=== PATIENT | female | born 1995 | race Caucasian/White ===

== ENCOUNTER 2016-04-15 14:35 | Emergency (ER) | payer MEDICAID ==
[~2016-04-15] VITALS: Ht 162.6 cm; Wt 54.5 kg
[2016-04-15 14:55] VITALS: BP 114/74; PULSE 76; RESP 12; O2SAT 100
--- NOTE | 2016-04-15 15:45 | DRSVH ---
PROCEDURE: X-RAY RIGHT FOREARM, TWO VIEWS ([id number]) INDICATIONS: truama, fall TECHNIQUE: 2 views of the forearm were acquired. COMPARISON: None. FINDINGS: Bones: No fractures or dislocations. No suspicious bony lesions. Soft tissues: No suspicious soft tissue calcifications or masses. IMPRESSION: No fracture Dictated by: Mal Diaz M.D. on 04/15/2016 at 15:42 Approved by: Mal Diaz M.D. on 04/15/2016 at 15:44
--- NOTE | 2016-04-15 15:47 | DRSVH ---
PROCEDURE: X-RAY RIGHT WRIST COMPLETE, MINIMUM THREE VIEWS ([id number]) INDICATIONS: truama, fall TECHNIQUE: 4 views of the wrist were acquired. COMPARISON: None. FINDINGS: Bones: No fractures or dislocations. No suspicious bony lesions. Soft tissues: No suspicious soft tissue calcifications. IMPRESSION: No fracture Dictated by: Mal Diaz M.D. on 04/15/2016 at 15:44 Approved by: Mal Diaz M.D. on 04/15/2016 at 15:46
--- NOTE | 2016-04-15 16:48 | ED.REPORT ---
HPI-Extremity Problem Upper Date of Service Apr 15, 2016 ED Provider: Dr. Ritchie Haywood M.D. A healthy 20 year old female presents to the ED with a right wrist injury after falling on it today while skiing. The pain is exacerbated with movement. The patient denies numbness/tingling or other injury/trauma. She has never hurt this wrist before. The patient is right-handed. Nursing Notes Stated Complaint: R WRIST PAIN Chief Complaint: Extremity Trauma Nursing Notes Reviewed: Yes Allergies: Coded Allergies: Penicillins (Verified Allergy, Mild, HIVES, 04/15/16) General Time Seen by MD: 16:47 Chief Complaint Wrist injury right Hx Obtained From: Patient Arrived By: Walk-in Onset Occurred: 5 - 8 hours ago Symptom Duration: Since onset Caused by: Fall on ground, Sports injury (Skiing) Location: : Wrist right Quality: Painful Severity: Current: Moderate Severity: Maximum: Moderate Associated with: Denies: Fever, Numb extremities Exacerbated by: Movement Pertinent Negative: Relieved by nothing Immunizations: Unknown Recent Healthcare: No recent doctor visit Similar Sx Previous: No Past Medical History Past Medical History None reported Past Surgical History None reported Smoking History Unknown if Ever Smoker Social History Other Social History: Good social support Ambulatory Status Independent Review of Systems Constitutional: Denies: Fever Musculoskeletal: Reports: Joint pain (Right wrist) Neurologic: Denies: Numbness (or tingling) Complete sys rev & neg: except as marked. Respiratory: Denies: Non-productive cough, Shortness of breath GI: Denies: Vomiting Physical Exam Initial Vital Signs Vital Signs (First) Date Time Temp Pulse Resp B/P Pulse Ox O2 Delivery O2 Flow Rate FiO2 04/15/16 14:55 36.8 76 12 114/74 100 Room Air Initial VS: Reviewed Head / Eyes: Atraumatic, Normocephalic ENT: Conjunctiva normal, No scleral icterus Neck: Supple, Full range of motion Skin: Warm, Dry, No cyanosis Neurologic: Alert, Oriented, Nonfocal Psychiatric: Mood/affect normal, Behavior normal, Normal thought content General/Constitutional: Awake, Alert Wrist / Hand: No deformity, Neurologic intact, Vascular intact Right Wrist: Positive: Tender snuffbox... (Mild, anatomic) Interpretation & Diagnostics X-Ray Interpretation Xray Interpretation: IMPRESSION: No fracture Dictated by: Mal Diaz M.D. on 04/15/2016 at 15:44 Study Performed: 4 Views X-Ray Ordered: Wrist right Interpretation / Wet Read by: Interpret - Radiologist Xray Interpretation: IMPRESSION: No fracture Dictated by: Mal Diaz M.D. on 04/15/2016 at 15:42 Study Performed: Right forearm, 2 Views Interpretation / Wet Read by: Interpret - Radiologist Procedures Splint Post-Application Eval Splint Post-Application Eval: Velcro right wrist immobilizer placed by ED certified medication technician Extremity Condition: Distal sensation intact, Distal motor Intact, No compartment syndrome Re-Eval/Medical Decision Re-Evaluation/Progress #1: Time of Eval: 16:54 Patient Status: Condition improved Re-Evaluation/Progress Note: Discussed with patient x-ray results, diagnosis, and plan for discharge. Follow-up and return to the ER instructions given. Patient agrees with plan for care and all questions were addressed. Re-Evaluation/Progress #2: Time of Eval: 17:30 Patient Status: Condition improved Re-Evaluation/Progress Note: Wrist immobilizer was placed. Patient rechecked. Counseled Regarding: Diagnosis, Need for follow-up, When/why to return to ED Discharge & Departure Impression: Primary Impression: Strain of right wrist Encounter type: initial encounter Qualified Code: S66.911A - Strain of unspecified muscle, fascia and tendon at wrist and hand level, right hand, initial encounter Disposition: Home Discharge Condition All VS Reviewed: Yes Condition: Stable Patient Instructions: Splint Care (ED), Wrist Injury (ED) Additional Instructions: Thank you for entrusting us with your care. Your x-ray did not indicate a fracture. Your wrist has been placed in a Velcro immobilizer splint today. Use the immobilizer all the time except for washing. Call the referral clinic for a follow-up appointment if your pain has not improved in a week. You may need repeat x-rays. Return to the ER with any new or worsening symptoms. Referrals: [facility] Miranda Attestation Portions of this note were transcribed by Arianna Escamilla. I, Dr. Haywood, personally performed the history, physical exam, and medical decision-making; I reviewed and confirmed the accuracy of the information in the transcribed note. Signed by: Miranda Veras, 04/15/2016, 17:55 copies to: [facility] Ritchie Haywood MD Apr 15, 2016 16:48 ARIANNA ESCAMILLA Apr 15, 2016 16:54
[2016-04-15 17:32] VITALS: BP 102/67; PULSE 70; O2SAT 100
== END 2016-04-15 17:32 | disposition home or self-care (01) ==
LOC: SED 14:35
DX: S66.911A Strain of unspecified muscle, fascia and tendon at wrist and hand level, right hand, initial encounter (principal); W18.39XA Other fall on same level, initial encounter; Y93.23 Activity, snow (alpine) (downhill) skiing, snowboarding, sledding, tobogganing and snow tubing; Y92.89 Other specified places as the place of occurrence of the external cause; Y99.8 Other external cause status; Z88.0 Allergy status to penicillin

== ENCOUNTER 2016-06-11 07:41 | Emergency (ER) | payer MEDICAID ==
[~2016-06-11] VITALS: Ht 162.6 cm; Wt 54.5 kg
[2016-06-11 07:42] VITALS: BP 120/79; RESP 16; O2SAT 100
--- NOTE | 2016-06-11 07:56 | ED.REPORT ---
HPI-Sore Throat ONLY HPI/PE done Jun 11, 2016 ED Provider: Naomi Aroldo, 20yo woman, history of migraines woke up with sore throat, had developed cough and chills three days ago. Nausea today and the day before. No vomiting. No diarrhea contacts. No sick contacts. NO rashes, CP, SOB, endorses Odynophagia and tender neck. No fever. No flu shot this year. Came to ER because she's "never had a sore throat this bad before, feels like it's tearing." Nursing Notes Stated Complaint: SORE THROAT Chief Complaint: ENT & Mouth Nursing Notes Reviewed: Yes Allergies: Coded Allergies: Penicillins (Verified Allergy, Mild, HIVES, 04/15/16) General Time Seen by MD: 07:45 Chief Complaint Sore throat Past Medical History Past Medical History None reported Past Surgical History None reported Smoking History Unknown if Ever Smoker Social History Other Social History: Good social support Ambulatory Status Independent Review of Systems Complete sys rev & neg: except as marked. Physical Exam General: Sitting up in chair, no apparent distress. HEENT: Normocephalic, atraumatic, EOMI grossly, oropharynx is red, +1 bilateral tonsils, no exudate. Mucous membranes are moist, nares are patent, there is anterior chain tenderness, no palpable lymph nodes. Cardiovascular: Regular rate and rhythm, no clicks murmurs rubs, peripheral pulses 2/4 equal bilaterally Pulmonary: Clear to auscultation bilaterally, no W/R/R. Abdominal: Soft to palpation, bowel sounds present 4, no hepatosplenomegaly. Negative rebound. Extremities: No edema appreciated. No tenderness, asymmetry. Neuro: Neurologically grossly intact, strength is equal bilaterally upper and lower extremities. MSK: Gait is normal, able to move extremities on their own volition, strength 5 out of 5 equal bilaterally to upper and lower extremities. Initial Vital Signs Vital Signs (First) Date Time Temp Pulse Resp B/P Pulse Ox O2 Delivery O2 Flow Rate FiO2 06/11/16 07:42 36.8 71 16 120/79 100 06/11/16 08:45 Room Air Initial VS: Reviewed Interpretation & Diagnostics Lab Results Interpretation Result Diagram: 06/11/16 0825 06/11/16 0825 Test 06/11/16 08:25 06/11/16 08:30 06/11/16 09:50 White Blood Count 5.4th/mm3 (3.8-10.1) Red Blood Count 4.33mil/mm3 (3.90-5.20) Hemoglobin 13.2g/dL (12.0-15.6) Hematocrit 39.9% (35.0-46.0) Mean Corpuscular Volume 92.1fL (81-100) Mean Corpuscular Hemoglobin 30.5pg (27.0-35.0) Mean Corpuscular Hemoglobin Concent 33.1% (32.0-37.0) Red Cell Distribution Width 12.1% (12.3-15.4) Platelet Count 176bil/L (150-400) Neutrophils (%) (Auto) 64.6% (40-74) Lymphocytes (%) (Auto) 21.0% (14-46) Monocytes (%) (Auto) 10.6% (4-12) Eosinophils (%) (Auto) 3.0% (0-5) Basophils (%) (Auto) 0.6% (0-3) Sodium Level 139mEq/L (134-144) Potassium Level 4.4mEq/L (3.5-5.2) Chloride Level 104mEq/L (97-108) Carbon Dioxide Level 21mmol/L (18-29) Blood Urea Nitrogen 4mg/dL (6-20) Creatinine 0.56mg/dL (0.57-1.00) Estimat Glomerular Filtration Rate 200mL/min (>59) Glucose Level 96mg/dL (60-99) Calcium Level 9.5mg/dL (8.5-10.1) Magnesium Level 2.1mg/dL (1.6-2.6) Total Bilirubin 0.3mg/dL (0.0-1.2) Aspartate Amino Transf (AST/SGOT) 18U/L (0-50) Alanine Aminotransferase (ALT/SGPT) 14U/L (0-32) Alkaline Phosphatase 72U/L (25-150) Total Protein 6.4g/dL (6.4-8.4) Albumin 4.1g/dL (3.4-5.0) Monoscreen Negative (Negative) Hold Purple Top Tube Received (Received) Hold Orange Top Tube Received (Received) Hold Urine Received (Received) ECG Interpretation ECG Interpretation: Sinus rhythm Rate 62 Regular axis, no signs of acute infarct or ischemia. [place] interval 167, QTC 400 Re-Eval/Medical Decision Med Decision/Clinical Course Physical exam, history is not consistent with streptococcal infection, rapid strep and Monospot tests were negative. [place] to be viral in nature. Interpretation as well as symptomatically treatment was discussed with the patient, she stated understanding and agreement. She stated concerned that she may be contagious and requested a note for work. On blood draw for Monospot test, patient had a syncopal event hitting her right frontal head. She was unconscious for less than 1 minute, she was placed in hospital bed, further laboratory work was done including cash surrender calculator, chemistries, urine, and EKG which were all unremarkable. Based on the chronicity of the blood draw and the negative workup, felt this was most likely vasovagal in nature. Counseled Regarding: Diagnosis, Lab results, Need for follow-up, When/why to return to ED Discharge & Departure Primary Impression: Pharyngitis Pharyngitis/tonsillitis etiology: unspecified etiology Qualified Code: J02.9 - Acute pharyngitis, unspecified Additional Impressions: Syncope and collapse Head injury Encounter type: initial encounter Qualified Code: S09.90XA - Unspecified injury of head, initial encounter Disposition: Home Discharge Condition All VS Reviewed: Yes Condition: Stable Patient Instructions: Pharyngitis (ED), Syncope (ED) Additional Instructions: Your exam and evaluation today did not have high suspicion for Strep throat, and blood test for mononucleosis was negative. In regards to your passing out, this was most likely due to what is referred to as "vasovagal" and is attributed to the situation of having your blood drawn. This is not uncommon, however you should mention this in the future to any time you are going to have blood drawn. In regards to your head, he can expect it to be sore in the next couple of days, you may develop a headache, in which case please take Tylenol. If you have any changes in vision, worsening dizziness, headache that does not go away or continuously gets worse please return to the emergency department. Recommend you follow-up with your primary physician. In the meantime, I recommend symptomatic management. Warm tea with honey, cough drops, and rest at home. There is a chance that you are still contagious , so I am recommending you take the day off work. If you develop worsening fever, chills, cold sweats, or notice any new rashes, please return to an urgent care or the ER if necessary. Follow up with primary care provider regarding on-going symptoms. Referrals: NOPCP (PCP) Attending Statement The patient was seen and examined together with Dr. Jennings on 06/11/2016 and I have added additional information to the note above. Behzad Jennings DO Jun 11, 2016 07:55 Ally Pearce Jun 11, 2016 08:06 Jj Condon DO Jun 11, 2016 13:23
[2016-06-11] MEDS ORDERED: Ondansetron 2 mg/mL 2 mL Inj ONE (08:35)
[2016-06-11 08:42] LABS: BASOPHILS % (AUTO) 0.6 % (0-3); MONOCYTES % (AUTO) 10.6 % (4-12); Mean Corpuscular Hemoglobin 30.5 pg (27.0-35.0); Mean Corpuscular Volume 92.1 fL (81-100); NEUTROPHILS % (AUTO) 64.6 % (40-74); Platelet Count 176 bil/L (150-400)
[2016-06-11 08:45] VITALS: BP 120/79; PULSE 75; RESP 14; O2SAT 99
[2016-06-11 09:35] VITALS: BP 106/44; PULSE 77; RESP 14; O2SAT 100
[2016-06-11 09:36] LABS: Magnesium 2.1 mg/dL (1.6-2.6)
== END 2016-06-11 09:49 | disposition home or self-care (01) ==
LOC: SED 07:41
DX: J02.9 Acute pharyngitis, unspecified (principal); R55 Syncope and collapse; S09.90XA Unspecified injury of head, initial encounter; W22.8XXA Striking against or struck by other objects, initial encounter; Y93.89 Activity, other specified; Y92.239 Unspecified place in hospital as the place of occurrence of the external cause; Y99.8 Other external cause status; Z88.0 Allergy status to penicillin
CPT/HCPCS: 80053; 81025; 83735; 85025; 86308; 87880; 93005; 96374; 99285; J2405